=== PATIENT | male | born 1995 ===

== ENCOUNTER 2017-04-28 23:30 | Emergency (ER) | payer BC ==
[2017-04-28] MEDS: Albuterol-Ipratrop 3 mg / 0.5 (3 ml) UD IH SCH (23:45)
[2017-04-28] MEDS ORDERED: Albuterol-Ipratrop 3 mg / 0.5 (3 ml) UD ONE (23:45)
--- NOTE | 2017-04-28 23:51 | C.PDOC ---
History Of Present Illness Patient is a 21 y/o male who presents to the ED with complaints of wheezing and SOB s/p adopting a dog 2 weeks ago. Patient admits to being allergic to dogs. Patient currently speaking in 1-2 word sentences. Denies fever or chills. Admits to smoking a Vape. No other physical complaints at this time. Time Seen by Provider: 04/28/17 23:49 Chief Complaint (Nursing): Shortness Of Breath History Per: Patient History/Exam Limitations: no limitations Onset/Duration Of Symptoms: Days (2 weeks) Current Symptoms Are (Timing): Still Present Initiating Event: Other (adopting dog when allergic) Current Respiratory Medications: See Home Med List Severity: Moderate Pain Scale Rating Of: 4 Associated Symptoms: denies: Fever, Chills Recent travel outside of the [place]: No Past Medical History Reviewed: Historical Data, Nursing Documentation, Vital Signs Vital Signs: Last Vital Signs Temp 97.7 F 04/28/17 23:38 Pulse 92 H 04/29/17 01:33 Resp 22 04/29/17 01:33 BP 120/77 04/29/17 01:33 Pulse Ox 98 04/29/17 01:33 - Medical History PMH: No Chronic Diseases Denies: Chronic Kidney Disease Surgical History: No Surg Hx Family History: States: No Known Family Hx - Social History Hx Tobacco Use: Yes (uses Vape) Hx Alcohol Use: No Hx Substance Use: No - Immunization History Hx Tetanus Toxoid Vaccination: No Hx Influenza Vaccination: Yes Hx Pneumococcal Vaccination: No Review Of Systems Constitutional: Negative for: Fever, Chills Respiratory: Positive for: Shortness of Breath, Wheezing Physical Exam - Physical Exam Appears: Well, Non-toxic, No Acute Distress Skin: Warm, Dry Head: Normacephalic Oral Mucosa: Moist Chest: Symmetrical Cardiovascular: Rhythm Regular, No Murmur Respiratory: Decreased Breath Sounds, Wheezing (diffuse), Other (speaking in 1- 2 word sentences) Gastrointestinal/Abdominal: Tenderness (moderate discomfort), Distention (acute) Neurological/Psych: Oriented x3, Normal Cognition ED Course And Treatment O2 Sat by Pulse Oximetry: 95 (room air) Pulse Ox Interpretation: Normal Progress Note: Pepcid, IV fluids, and solu-medrol administered. Reevaluation Time: 02:20 Reassessment Condition: Improved Critical Care Time - Critical Care Note Total Time (in mins): 30 Documented critical care: time excludes all time spent performing seperately billable procedures. Disposition Counseled Patient/Family Regarding: Studies Performed, Diagnosis, Need For Followup, Rx Given - Disposition Referrals: [facility] [Outside] [facility] [Outside] Disposition: HOME/ ROUTINE Disposition Time: 23:51 Condition: FAIR Additional Instructions: Please return if symptoms recur. Also use benadryl, pepcid and claritin. 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 I have reviewed the chart and agree that the record accurately reflects my personal performance of the history, physical exam, medical decision making, and the department course for this patient. I have also personally directed, reviewed, and agree with the discharge instructions and disposition.
[2017-04-28] MEDS ORDERED: Lactated Ringer's 1,000 ML IV ONE (23:56)
[2017-04-29] MEDS: Albuterol-Ipratrop 3 mg / 0.5 (3 ml) UD IH SCH ×2 (00:06→00:17)
[2017-04-29] MEDS ORDERED: Albuterol-Ipratrop 3 mg / 0.5 (3 ml) UD ONE ×2 (00:30→02:22)
[2017-04-29] MEDS ORDERED: Lactated Ringer's 1,000 ML ONE (00:38)
[2017-04-29] MEDS ORDERED: Albuterol-Ipratrop 3 mg / 0.5 (3 ml) UD IH STA (02:13)
[2017-04-29 02:53] VITALS: BP 133/58; PULSE 90; RESP 20; TEMP 98.1; O2SAT 99
== END 2017-04-29 02:53 | disposition home or self-care (01) ==
LOC: C.ER 23:30
DX: J45.909 Unspecified asthma, uncomplicated (principal); J30.81 Allergic rhinitis due to animal (cat) (dog) hair and dander; Z87.891 Personal history of nicotine dependence
CPT/HCPCS: 96361; 96374; 96375; 99284; J2930; J7120